=== PATIENT | male | born 1950 | race Caucasian/White ===

== ENCOUNTER 2017-01-19 10:30 | Inpatient (IN) | payer MEDICARE, OTHER ==
[~2017-01-19] VITALS: Ht 180 cm; Wt 126.0 kg
[~2017-01-19 10:30] MED LIST: MUCINEX OTC; ZITHROMAX500 MG PO
[2017-01-20 05:41] LABS: HCT 36.7 % (42.0-52.0); HGB 12.3 g/dl (13.2-18.0); MCH 32.5 pg (25.0-31.0); MCHC 33.5 g/dL (32.0-36.0); MCV 96.8 fL (78.0-100.0); RBC 3.79 M/uL (4.70-6.00); RDW 12.2 % (11.5-14.0); WBC 17.5 K/uL (4.0-10.5)
[2017-01-20 06:00] LABS: CREATININE 1.1 mg/dL (0.7-1.2); POTASSIUM 4.7 mmol/L (3.5-5.1)
[2017-01-21 05:10] LABS: HCT 31.2 % (42.0-52.0); HGB 10.4 g/dl (13.2-18.0); MCH 32.4 pg (25.0-31.0); MCHC 33.3 g/dL (32.0-36.0); MCV 97.2 fL (78.0-100.0); MPV 10.1 fL (6.0-9.5); RBC 3.21 M/uL (4.70-6.00); RDW 12.2 % (11.5-14.0); WBC 15.8 K/uL (4.0-10.5)
[2017-01-21 05:30] LABS: CREATININE 1.3 mg/dL (0.7-1.2); POTASSIUM 4.2 mmol/L (3.5-5.1)
[2017-01-22 05:55] LABS: HCT 25.8 % (42.0-52.0); HGB 8.6 g/dl (13.2-18.0); MCH 32.6 pg (25.0-31.0); MCHC 33.3 g/dL (32.0-36.0); MCV 97.7 fL (78.0-100.0); MPV 10.1 fL (6.0-9.5); RBC 2.64 M/uL (4.70-6.00)
[2017-01-22 06:12] LABS: CREATININE 0.9 mg/dL (0.7-1.2); POTASSIUM 4.1 mmol/L (3.5-5.1)
== END 2017-01-22 16:43 | DRG 470 ==
LOC: FMS 12:00
PROVIDERS: ADMIT Legal Medicine
PROC: 0SR904A Replacement of Right Hip Joint with Ceramic on Polyethylene Synthetic Substitute, Uncemented, Open Approach (ICD-10-PCS; principal; 2017-01-19 12:00)
DX: M16.11 Unilateral primary osteoarthritis, right hip (principal); Z96.642 Presence of left artificial hip joint; D62 Acute posthemorrhagic anemia; Z98.52 Vasectomy status; Z79.899 Other long term (current) drug therapy
CPT/HCPCS: 36415; 73501; 76000; 80048; 82962; 86850; 86900; 86901; 88311; 94010; 94760; 94762; 97110; 97116; 97161; 97166; 97530-GP; 97535; C1713; C1776; J0131; J0697; J1170; J1885; J2270; J2795; J3010

== ENCOUNTER 2017-01-22 15:13 | Inpatient (IN) | payer MEDICARE ==
[2017-01-31] MEDS ORDERED: PERCOCET 5/3251 TAB PO (13:39)
[2017-01-31] MEDS ORDERED: XARELTO10 MG PO (13:40)
[2017-01-31] MEDS ORDERED: CERTAGEN1 EACH PO (14:21)
[2017-01-31] MEDS ORDERED: FEOSOL325 MG PO (14:21)
--- NOTE | 2017-02-03 11:59 | NUR ---
LATE ENTRY FOR 01/31/2017 DISCHARGE NOTE- PATIENT D/C HOME WITH [facility] ON 01/31 FOR PT/OT. ROLLING WALKER ARRANGED WITH GOULDS. PATIENT CONTINUED WITH XARELTO AT TIME OF DISCHARGE.
== END 2017-01-31 13:30 | disposition home or self-care (01) | DRG 561 ==
LOC: FSNU 15:13
PROVIDERS: ADMIT Internal Medicine Cardiovascular Disease
DX: Z47.1 Aftercare following joint replacement surgery (principal); Z98.52 Vasectomy status; Z96.641 Presence of right artificial hip joint; Z96.642 Presence of left artificial hip joint
CPT/HCPCS: 88304; 97110; 97116; 97161; 97166; 97530-GP; 97535